=== PATIENT | female | born 1990 | race Caucasian/White ===

== ENCOUNTER 2017-10-29 00:45 | Inpatient (IN) | payer BC ==
[~2017-10-29] VITALS: Ht 162.6 cm; Wt 88.6 kg
[2017-10-29] MEDS ORDERED: OXYTOCIN 30U/ 0.9% NaCL 500ML 500 ML IV PRN (01:54)
[2017-10-29] MEDS ORDERED: OXYTOCIN 30U/ 0.9% NaCL 500ML 500 ML IV ONE (01:54)
[2017-10-29] MEDS ORDERED: D5%-LACTATED RINGERS 1,000 ML IV SCH (01:54)
[2017-10-29] MEDS ORDERED: METOCLOPRAMIDE 5 MG/ML, 2ML IVPush PRN (02:00)
[2017-10-29] MEDS ORDERED: FENTANYL PF 100 MCG/2ML IVPush PRN (02:00)
[2017-10-29] MEDS ORDERED: FENTANYL PF 100 MCG/2ML IV PRN (02:00)
[2017-10-29] MEDS ORDERED: SODIUM CITRATE/CITRIC ACID 30 ML UDC PO PRN (02:00)
[2017-10-29] MEDS ORDERED: CALCIUM CARBONATE 500 MG TAB.CHEW PO PRN (02:00)
[2017-10-29] MEDS ORDERED: ONDANSETRON 2MG/ML, 2ML IVPush PRN (02:00)
[2017-10-29] MEDS ORDERED: TERBUTALINE 1 MG/ML, 1ML IVPush PRN (02:00)
[2017-10-29] MEDS ORDERED: OXYTOCIN 30U/ 0.9% NaCL 500ML 500 ML ONE ×2 (02:26→17:27)
[2017-10-29] MEDS ORDERED: NEWBORN KIT ONE (02:26)
[2017-10-29 02:31] LABS: BASOPHILS # (AUTO) 0.04 x10^3/uL (0-0.1); BASOPHILS % (AUTO) 1 % (0-1); EOSINOPHILS % (AUTO) 1 % (1-7); LYMPHOCYTES # (AUTO) 1.98 x10^3/uL (1-3.4); LYMPHOCYTES % (AUTO) 20 % (22-44); MD NO; MEAN CORPUSCULAR HEMOGLOBIN 25.4 pg (27.0-34.8); MEAN CORPUSCULAR HGB CONC 32.8 g/dL (32.4-35.8); MEAN CORPUSCULAR VOLUME 77.5 fL (80-100); MEAN PLATELET VOLUME 7.9 fL (7.4-10.4); MONOCYTES # (AUTO) 0.51 x10^3/uL (0.2-0.8); MONOCYTES % (AUTO) 5 % (2-9); NEUTROPHILS % (AUTO) 73 % (42-75); PLATELET COUNT 364 x10^3/uL (130-400); RED BLOOD COUNT 4.49 x10^6/uL (3.82-5.3); RED CELL DISTRIBUTION WIDTH 17.3 % (9.6-15.2)
[2017-10-29] MEDS: LACTATED RINGERS 1,000 ML IV SCH ×3 (02:31→15:53)
[2017-10-29] MEDS ORDERED: MISOPROSTOL 200 MCG TABLET ONE (14:49)
[2017-10-29] MEDS ORDERED: FENTANYL PF 100 MCG/2ML ONE (15:43)
[2017-10-29] MEDS ORDERED: OXYTOCIN 30U/ 0.9% NaCL 500ML 500 ML IV SCH (16:33)
[2017-10-29] MEDS ORDERED: ONDANSETRON 2MG/ML, 2ML IV PRN (17:00)
[2017-10-29] MEDS ORDERED: OXYcodone IR 5MG TABLET PO PRN (17:00)
[2017-10-29] MEDS ORDERED: MISOPROSTOL 200 MCG TABLET PR PRN (17:00)
[2017-10-29] MEDS ORDERED: IBUPROFEN 600 MG TABLET ONE (17:27)
[2017-10-29] MEDS: IBUPROFEN 600 MG TABLET PO PRN (17:31)
[2017-10-29] MEDS: OXYTOCIN 30U/ 0.9% NaCL 500ML 500 ML IV SCH (17:32)
[2017-10-29 19:25] VITALS: BP 107/60
[2017-10-30 00:01] VITALS: BP 104/62
[2017-10-30] MEDS: LACTATED RINGERS 1,000 ML IV SCH ×2 (01:54→01:55)
[2017-10-30] MEDS: OXYTOCIN 30U/ 0.9% NaCL 500ML 500 ML IV SCH ×2 (02:33→03:09)
[2017-10-30 04:30] VITALS: BP 111/61
[2017-10-30 05:38] LABS: BASOPHILS # (AUTO) 0.02 x10^3/uL (0-0.1); BASOPHILS % (AUTO) 0 % (0-1); EOSINOPHILS # (AUTO) 0.05 x10^3/uL (0-0.4); EOSINOPHILS % (AUTO) 0 % (1-7); LYMPHOCYTES # (AUTO) 2.26 x10^3/uL (1-3.4); LYMPHOCYTES % (AUTO) 16 % (22-44); MD NO; MEAN CORPUSCULAR HGB CONC 32.4 g/dL (32.4-35.8); MEAN CORPUSCULAR VOLUME 77.2 fL (80-100); MEAN PLATELET VOLUME 8.1 fL (7.4-10.4); MONOCYTES # (AUTO) 0.64 x10^3/uL (0.2-0.8); MONOCYTES % (AUTO) 5 % (2-9); NEUTROPHILS # (AUTO) 11.45 x10^3/uL (1.8-6.8); NEUTROPHILS % (AUTO) 79 % (42-75); PLATELET COUNT 317 x10^3/uL (130-400); RED BLOOD COUNT 3.83 x10^6/uL (3.82-5.3); RED CELL DISTRIBUTION WIDTH 17.5 % (9.6-15.2)
[2017-10-30] MEDS: IBUPROFEN 600 MG TABLET PO PRN ×2 (08:54→15:40)
[2017-10-30 09:00] VITALS: BP 114/65
[2017-10-30] MEDS ORDERED: PRENATAL VIT/IRON/FA 1 EACH TABLET PO SCH (09:00)
[2017-10-30] MEDS ORDERED: DOCUSATE 100 MG CAPSULE PO SCH (09:00)
[2017-10-30] MEDS: OXYcodone IR 5MG TABLET PO PRN ×2 (14:18→15:40)
[2017-10-30] MEDS ORDERED: IBUP-1222 PO (14:21)
[2017-10-30] MEDS ORDERED: OXYC-302 PO (14:21)
== END 2017-10-30 16:24 | disposition home or self-care (01) | DRG 774 ==
LOC: LDOP 00:45 → LDIP 02:00 → 2NW 19:15
PROVIDERS: ADMIT Obstetrics & Gynecology; ATTEND Obstetrics & Gynecology
PROC: 0KQM0ZZ Repair Perineum Muscle, Open Approach (ICD-10-PCS; principal; 2017-10-29)
PROC: 10E0XZZ Delivery of Products of Conception, External Approach (ICD-10-PCS; 2017-10-29)
DX: O70.1 Second degree perineal laceration during delivery (principal); O72.1 Other immediate postpartum hemorrhage; Z37.0 Single live birth; Z3A.40 40 weeks gestation of pregnancy
CPT/HCPCS: 36415; 85025; 86850; 86900; 89060; J3010; J2590; J7120; J7121; Q0114

== ENCOUNTER 2021-04-24 16:20 | Inpatient (IN) | payer BC ==
[~2021-04-24 16:20] MED LIST: IBUP-1222 PO; OXYC1TAB14 PO
[2021-04-24] MEDS: OXYTOCIN 30U/ 0.9% NaCL 500ML 500 ML IV SCH ×2 (16:40→17:45)
[2021-04-24] MEDS ORDERED: SIMETHICONE 80 MG CHEW TAB PO PRN (17:00)
[2021-04-24] MEDS ORDERED: MISOPROSTOL 200 MCG TABLET PR PRN (17:00)
[2021-04-24] MEDS ORDERED: DOCUSATE 100 MG CAPSULE PO PRN (17:00)
[2021-04-24] MEDS ORDERED: OXYcodone/APAP 5/325MG TABLET PO PRN (17:00)
[2021-04-24] MEDS ORDERED: ONDANSETRON 2MG/ML, 2ML IV PRN (17:00)
[2021-04-24] MEDS ORDERED: ACETAMINOPHEN 325 MG TABLET PO PRN (17:00)
[2021-04-24] MEDS ORDERED: HYDROcodone/APAP 5/325 TABLET PO PRN (17:00)
[2021-04-24 17:13] LABS: MEAN CORPUSCULAR HEMOGLOBIN 20.7 pg (27.0-34.8); MEAN CORPUSCULAR HGB CONC 30.9 g/dL (32.4-35.8); MEAN PLATELET VOLUME 7.4 fL (7.4-10.4); PLATELET COUNT 413 x10^3/uL (130-400); RED BLOOD COUNT 4.11 x10^6/uL (3.82-5.3); RED CELL DISTRIBUTION WIDTH 18.7 % (9.6-15.2)
[2021-04-24 18:04] LABS: BAND#(MANUAL) 0.16 x10^3/uL; BANDS%(MANUAL) 1 % (0-7); LYMPH#(MANUAL) 0.65 x10^3/uL (1-3.4); LYMPHS% (MANUAL) 4 % (22-44); MONOS#(MANUAL) 0.16 x10^3/uL (0.3-2.7); MONOS% (MANUAL) 1 % (2-9); SEG#(MANUAL) 15.23 x10^3/uL (1.8-6.8); SEGS% (MANUAL) 94 % (42-75)
[2021-04-24 18:06] LABS: ANISOCYTOSIS 2+; MICROCYTOSIS 2+
[2021-04-24 18:07] LABS: POLYCHROMASIA 1+
[2021-04-24 18:09] LABS: <PLATELET ESTIMATE> INCREASED; <PLT MORPHOLOGY> NORMAL PLT MORPH; HYPOCHROMIA 2+
[2021-04-24 18:10] LABS: OVALOCYTES 1+
[2021-04-24] MEDS: IBUPROFEN 600 MG TABLET PO PRN (18:10)
[2021-04-24 20:00] VITALS: BP 116/72
[2021-04-24 23:32] LABS: BASOPHILS % (AUTO) 1 % (0-1); EOSINOPHILS % (AUTO) 0 % (1-7); LYMPHOCYTES % (AUTO) 13 % (22-44); MEAN CORPUSCULAR HGB CONC 31.6 g/dL (32.4-35.8); MEAN PLATELET VOLUME 7.3 fL (7.4-10.4); MONOCYTES % (AUTO) 4 % (2-9); NEUTROPHILS % (AUTO) 82 % (42-75); PLATELET COUNT 358 x10^3/uL (130-400); RED BLOOD COUNT 3.52 x10^6/uL (3.82-5.3); RED CELL DISTRIBUTION WIDTH 19.1 % (9.6-15.2)
[2021-04-25 01:00] VITALS: BP 109/68
[2021-04-25] MEDS: IBUPROFEN 600 MG TABLET PO PRN ×3 (01:01→13:58)
[2021-04-25 05:56] VITALS: BP 111/69
[2021-04-25 07:50] VITALS: BP 116/72
[2021-04-25] MEDS ORDERED: PRENATAL VIT/IRON/FA 1 EACH TABLET PO SCH (09:00)
[2021-04-25] MEDS ORDERED: FERR324T5 PO (12:12)
[2021-04-25] MEDS ORDERED: IBUP-1222 PO (12:12)
[2021-04-25] MEDS ORDERED: DOCU-131 PO (12:13)
[2021-04-25 14:15] VITALS: BP 114/69
== END 2021-04-25 16:29 | disposition home or self-care (01) | DRG 769 ==
LOC: LDIP 16:20 → 2NW 19:35
PROVIDERS: ADMIT Obstetrics & Gynecology; ATTEND Obstetrics & Gynecology
PROC: 0KQM0ZZ Repair Perineum Muscle, Open Approach (ICD-10-PCS; principal; 2021-04-24)
DX: Z39.0 Encounter for care and examination of mother immediately after delivery (principal); D62 Acute posthemorrhagic anemia; O99.03 Anemia complicating the puerperium; O99.345 Other mental disorders complicating the puerperium; F53.0 Postpartum depression; O70.1 Second degree perineal laceration during delivery; Z20.822 Contact with and (suspected) exposure to COVID-19; F32.9 Major depressive disorder, single episode, unspecified; Z83.3 Family history of diabetes mellitus
CPT/HCPCS: 36415; 85014; 85018; 85025; 86592; 86850; 86900; 87635; G0378; J2590